=== PATIENT | female | born 1995 | race Caucasian/White ===

== ENCOUNTER 2016-12-11 18:37 | Emergency (ER) | payer OTHER, BC ==
[~2016-12-11] VITALS: Ht 160 cm; Wt 61.7 kg
[~2016-12-11 18:37] MED LIST: FLUT1INH7 INH
[2016-12-11 18:39] VITALS: BP 127/73; PULSE 66; RESP 18; TEMP 98.1; O2SAT 100
[2016-12-11] MEDS ORDERED: VENTAER INH (18:43)
[2016-12-11] MEDS ORDERED: LEVOTAB PO (18:43)
[2016-12-11] MEDS ORDERED: MONT10TA4 PO (18:43)
--- NOTE | 2016-12-11 19:23 | PD ---
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 Patient was assisting with a laceration repair when some blood when onto her face. She believes she was able to close her eye before anyone into her eye. She washed of fluid off of her face immediately. The source patient has agreed to rapid HIV testing. He denies any history of HIV or hepatitis and appears to be low risk for these viruses based on history. PFSH Past Medical History Asthma: Yes Influenza Vaccination: Yes ?: Not Past Surgical History Section: Yes Social History Alcohol Use: No Tobacco Use: No Substance Use: No Allergies-Medications (Allergen,Severity, Reaction): Coded Allergies: Dilaudid (Verified Allergy, Severe, HIVES, 12/11/16) Percocet (Verified Allergy, Severe, HIVES, 12/11/16) Reported Meds & Prescriptions Reported Meds & Active Scripts Active Reported Ventolin Hfa 18 GM Inh (Albuterol Sulfate) 90 Mcg/Act Aer 2 Puff INH Q4-6H PRN Montelukast (Montelukast Sodium) 10 Mg Tab 10 Mg PO HS Levocetirizine 5 Mg Tab 5 Mg PO DAILY Breo Ellipta Inh (Fluticasone/Vilanterol) 200-25 Mcg/Act Inh 1 Puff INH DAILY Use daily at the same time. Review of Systems Except as stated in HPI: all other systems reviewed are Neg Physical Exam Narrative GENERAL: Well-developed, well-nourished, comfortable, no apparent distress. SKIN: Focused skin assessment warm/dry. No lacerations or open wounds. HEAD: Atraumatic. Normocephalic. EYES: Pupils equal and round. No injection or drainage. NEUROLOGICAL: Awake and alert. No obvious cranial nerve deficits. Motor grossly within normal limits. Normal speech. PSYCHIATRIC: Appropriate mood and affect; insight and judgment normal. Data Data Last Documented VS Vital Signs Date Time Temp Pulse Resp B/P Pulse Ox O2 Delivery O2 Flow Rate FiO2 12/11/16 18:39 98.1 66 18 127/73 100 MDM Medical Decision Making Medical Screen Exam Complete: Yes Emergency Medical Condition: Yes Differential Diagnosis Body fluid exposure Narrative Course See history of present illness. The patient believes she may be fully vaccinated for hepatitis B, but is unsure. Patient counseled on post exposure prophylaxis, and is declining at this time. The source patient has agreed to rapid HIV testing. According to his history, he appears to be low risk for HIV/hepatitis. Diagnosis Primary Impression: Employee exposure to body fluids Referrals: [facility] 3 days Additional Instructions: Follow-up with employee health this week. Disposition: 01 DISCHARGE HOME Condition: Chuy Mata MD Dec 11, 2016 19:23
[2016-12-11 20:19] VITALS: BP 124/82
== END 2016-12-11 20:23 | disposition home or self-care (01) ==
LOC: PHED 18:37
DX: Z77.21 Contact with and (suspected) exposure to potentially hazardous body fluids (principal); X58.XXXA Exposure to other specified factors, initial encounter; Y93.F9 Activity, other caregiving; Y92.238 Other place in hospital as the place of occurrence of the external cause; Y99.0 Civilian activity done for income or pay
CPT/HCPCS: 99281

== ENCOUNTER → 2016-12-30 | Day surgery (SDC) | payer BC ==
[~2016-12-30] VITALS: Ht 162.6 cm; Wt 59.0 kg
[~2016-12-30] MED LIST changes: +ACETAMINOPHEN 1000 MG/100 ML VIAL IV ONE; +BUPIVACAINE HCL PF 0.5% 30 ML VIAL INFIL ONE; +BUPIVACAINE HCL PF 0.5% 30 ML VIAL ONE; +CEPH-460 PO; +IBUP800T23 PO; +LEVOTAB PO; +LIDOCAINE HCL 2% 50 ML VIAL INFIL ONE; +LIDOCAINE HCL 2% 50 ML VIAL ONE; +MIDAZOLAM HCL 2 MG/2 ML VIAL ONE; +MONT10TA4 PO; +NEOMYCIN/POLYMYXIN 1 ML G.U. IRRIGANT ONE; +NEOMYCIN/POLYMYXIN 1 ML G.U. IRRIGANT TOPICAL ONE; +PROPOFOL 200 MG/20 ML AMP IV ONE; +TRAM50TA PO; +VENTAER INH; +ceFAZolin 1,000 MG/NS 100 ML IV SCH
[2016-12-30 10:17] VITALS: BP 121/66; PULSE 78; RESP 18; TEMP 98.3; O2SAT 98
[2016-12-30 10:38] LABS: HEMATOCRIT 40.6 % (35.0-46.0); MEAN CELL VOLUME 92.3 FL (80.0-100.0); MEAN CORPUSCULAR HEMOGLOBIN 31.8 PG (27.0-34.0); MEAN CORPUSCULAR HGB CONC 34.4 % (32.0-36.0); PLATELET COUNT 297 TH/MM3 (150-450); RED CELL DISTRIBUTION WIDTH 11.7 % (11.6-17.2); REVIEW FLAG FINAL; WHITE BLOOD COUNT 7.6 TH/MM3 (4.0-11.0)
[2016-12-30 12:10] VITALS: TEMP 98.1
[2016-12-30 12:30] VITALS: BP 110/67; PULSE 62; RESP 16; O2SAT 100
--- NOTE | 2016-12-31 07:31 | MP ---
cc: KAVIN CRAWFORD III, M.D. DATE OF SURGERY 12/30/2016 PREOPERATIVE DIAGNOSIS Right dorsal wrist mass. PROCEDURE Right dorsal wrist mass excisional biopsy. SURGEON Kavin Crawford III, MD PROCEDURE The patient was brought to the operating room, placed supine on the operating table. After the correct site and side of surgery were verified by members of each team in the room multiple times including the patient and myself and after adequate preoperative markings and preoperative written consent were verified by everyone and after an adequate preoperative time-out was performed to everyone satisfaction and after adequate IV sedation had been achieved, the right upper extremity was prepped and draped in the traditional sterile surgical fashion. A 50/50 mixture of 2% plain lidocaine, 0.5% plain Marcaine was infiltrated into the skin and subcutaneous tissue into the wrist joint. The limb was exsanguinated with an Chalino wrap and a highly placed well-padded axillary tourniquet was inflated to 200 mmHg for a total of 37 minutes. A transverse oriented incision was made in the wrist crease overlying the mass and carried down through skin and subcutaneous tissue. Blunt dissection was performed. The extensor retinaculum was then sized for its proximal most 1 cm. The extensor tendons were identified and retracted in opposite directions. A bulge from the wrist joint was evident and a small longitudinal incision was made in the capsule and out came a prominent protuberant mass of tissue which was then debrided free from the surrounding tissue and ultimately debrided off of the scapholunate ligament. It was passed off the field as a specimen in its entirety. There was no finite injury to the scapholunate ligament. The cartilage in the proximal pole of the scaphoid was can completely healthy and uninjured. Some abrasions with a curette was performed to induce scar tissue to form over the dorsal aspect of the ligament. Any attenuated tissue was then debrided. Thorough irrigation with a liters worth of saline was performed. There were no other anatomic abnormalities identified. The wrist capsule was then closed using 2-0 Vicryl sutures. Thorough irrigation was performed again. Passive range of motion examination of the hand and wrist was performed and tenodesis was completely normal and range of motion was fully intact. The skin edges were then reapproximated using deep 4-0 Vicryl sutures and the skin edges were approximated using running subcuticular 4-0 Monocryl suture. The hand arm were thoroughly cleansed dried. Mastisol and Steri-Strips were applied. The hand and arm were thoroughly cleansed a dried. A bulky protective dressing was applied dorsally followed by a circumferential Sof-Rol and a volar immobilizing splint was made in the usual fashion. The axillary tourniquet was released. The hand and all the fingers became immediately soft, pink and warm and had brisk capillary refill of less than two seconds. No hematoma formation was present. Hemostasis was intact. The patient was awakened from anesthesia and transported to the Post Anesthesia Care Unit awake and in stable condition. Sponge, needle, instrument counts were correct at the case as reported by the nurses in the room. MD JESUS Kumar III/KIANNA /12:19 PM /7:19 AM
== END | disposition home or self-care (01) ==
LOC: PHSDC 09:50
PROVIDERS: ATTEND Orthopaedic Surgery Hand Surgery
DX: M67.431 Ganglion, right wrist (principal); J45.909 Unspecified asthma, uncomplicated
CPT/HCPCS: 01810; 25110; 36415; 85027; 88304; J0131; J0690; J2250; J3010; 88305